=== PATIENT | female | born 1945 | race Caucasian/White ===

== ENCOUNTER 2019-02-24 10:15 | Emergency (ER) | payer MEDICARE, OTHER ==
[~2019-02-24] VITALS: Ht 170.2 cm; Wt 108.9 kg
[~2019-02-24 10:15] MED LIST: CALCIUM + VITA1 EAC1 PO; CELEBREX200 MG PO; DICLOFENAC SODI75 MG PO; DICYCLOMINE HCL10 MG PO; ESTRADIOL2 MG PO; FISH OIL-OMEGA1 EACH PO; LEVOTHROID50 MCG PO; METFORMIN HCL500 MG PO; METOPROLOL TART50 MG PO; MULTIVITAMINS1 EAC7 PO; NEXIUM20 MG PO; NORCO 5-325 TA1 EACH PO; NP THYROID60 MG PO; PAROXETINE HCL40 MG PO; PRILOSEC10 MG PO
[2019-02-24] MEDS ORDERED: PROTONIX40 M1 PO (10:30)
[2019-02-24] MEDS ORDERED: VITAMIN D35000 UNI1 PO (10:31)
[2019-02-24] MEDS ORDERED: ASPIR-LOW81 MG PO (10:31)
[2019-02-24] MEDS ORDERED: LIPITOR10 MG PO (10:36)
[2019-02-24] MEDS ORDERED: QMIIZ ODT7.5 MG PO (10:37)
[2019-02-24] MEDS ORDERED: DOXEPIN HCL10 MG PO (10:38)
[2019-02-24] MEDS ORDERED: LISINOPRIL2.5 MG PO (10:39)
[2019-02-24] MEDS ORDERED: ONDANSETRON ODT8 MG PO (13:10)
== END 2019-02-24 13:40 | disposition home or self-care (01) ==
LOC: ED 10:15
DX: K29.00 Acute gastritis without bleeding (principal); I10 Essential (primary) hypertension; Z88.2 Allergy status to sulfonamides; Z79.899 Other long term (current) drug therapy; Z79.84 Long term (current) use of oral hypoglycemic drugs; Z79.82 Long term (current) use of aspirin
CPT/HCPCS: 80053; 81001; 83690; 85025; 96361; 96374; 99284-25; J2405; J7030

== ENCOUNTER 2021-10-16 07:42 | Day surgery (SDC) | payer MEDICARE, OTHER ==
[~2021-10-16] VITALS: Ht 170.2 cm; Wt 101.8 kg
[~2021-10-16 07:42] MED LIST changes: +ASPIR-LOW81 MG PO; +DOXEPIN HCL10 MG PO; +LIPITOR10 MG PO; +LISINOPRIL2.5 MG PO; +ONDANSETRON ODT8 MG PO; +PROTONIX40 M1 PO; +QMIIZ ODT7.5 MG PO; +VITAMIN D35000 UNI1 PO
[2021-10-16] MEDS ORDERED: ELIQUIS5 MG PO (08:11)
--- NOTE | 2021-10-16 09:48 | NUR ---
10/16/21 0948 Delfina Garcia 9420-PATIENT ARRIVED TO PACU ON 2L NC RR EVEN. PATIENT LAYING LEFT LATERAL ABDOMEN SOFT IVF INFUSING. PATIENT FLICKERS EYELASHES TO VERBAL STIMULI NOT FOLLOWING ANY COMMANDS. SR.
--- NOTE | 2021-10-16 10:47 | NUR ---
ICED WATER GIVEN. CALL LIGHT WITHIN REACH.
--- NOTE | 2021-10-16 12:51 | NUR ---
AFTER A LONG WAIT FOR PATIENT'S FRIEND AND SEVERAL PHONE CALLS, PATIENT'S FRIEND ARRIVES AT 1245. PATIENT IS DISCHARGED FROM DAY SURGERY AT 1205. SHE USES THE BATHROOM TWICE PRIOR TO HER FRIEND'S ARRIVAL. PATIENT TRANSFERS HERSELF FROM THE WHEELCHAIR TO THE CAR AND SHE TOLERATES THAT WELL.
--- NOTE | 2021-10-17 06:04 | OR ---
[facility] [address] [place] [address] Signed DATE OF OPERATION: 10/16/2021 SURGEON: Sheila Wright MD PREOPERATIVE DIAGNOSES: 1. Unremarkable colonoscopy in 2011. 2. Internal hemorrhoids. 3. Irritable bowel syndrome with diarrhea. POSTOPERATIVE DIAGNOSES: 1. 5 mm polyp at proximal. DICTATION ENDS HERE. Sheila Wright MD ALB/MODL /[id number] Copies: ~ Electronically Signed By: SHEILA WRIGHT MD 10/17/21 0604 PATIENT NAME: CRISTIN BROWN OPERATIVE REPORT DATE OF : 45 REPORT #: [id number] PHYSICIAN: SHEILA WRIGHT MD PCP: HARVEY CHRISTINE PA-C REPORT IS CONFIDENTIAL AND NOT TO BE RELEASED WITHOUT AUTHORIZATION
--- NOTE | 2021-10-17 06:04 | OR ---
[facility] [address] [place], [place] [address] Signed DATE OF OPERATION: 10/16/2021 SURGEON: Sheila Wright MD PREOPERATIVE DIAGNOSES: 1. Unremarkable colon[place] [address] Kaur. 2. Hemorrhoids. 3. Irritable bowel syndrome with diarrhea. POSTOPERATIVE DIAGNOSES: 1. 5 mm polyp at proximal transverse colon. 2. 4 mm polyps x2 at hepatic flexure. 3. Minimal internal hemorrhoids and associated skin tags. PROCEDURE: Colonoscopy with hot biopsy. ESTIMATED BLOOD LOSS: None. INDICATIONS: Mackenzie is a 75-year-old female asked to see me for followup colonoscopy. Her one and only colonoscopy were unremarkable with Dr. Kaur back in 2011. She is known to have some internal hemorrhoid tissue. She did well with Versed and fentanyl. She also describes irritable bowel syndrome for many years. I actually helped her with an upper endoscopy back in 2006, that went well. She has no family history of colon cancer or polyps. She has no lower GI complaints currently. In the office, I gave her a pamphlet on colonoscopy. She understands the nature of the test. There is risk including, but not limited to gas bloating, crampy abdominal pain, bleeding, perforation requiring surgery, and missed diagnosis. We had reviewed the need for IV conscious sedation. She expressed understanding and wished to proceed. PROCEDURE IN DETAIL: Mackenzie was taken into our endoscopy suite and placed in the left lateral decubitus position. She was given a total of 10 mg of Versed and 200 mcg of fentanyl. The digital rectal exam was unremarkable. She has good sphincter tone. No external hemorrhoids. The scope had been inserted and advanced under direct visualization of camera. It was buckling back in the sigmoid colon. We could not get all the way down to the cecum. We had to have our anesthesia provider come and provide monitored anesthesia care with propofol. After that, Mackenzie relaxed quite nicely and then the Electronically Signed By: SHEILA WRIGHT MD 10/17/21 0604 PATIENT NAME: MACKENZIE BROWN OPERATIVE REPORT DATE OF : 45 REPORT #: [id number] PHYSICIAN: HSEILA WRIGHT MD PCP: HARVEY CHRISTINE PA-C REPORT IS CONFIDENTIAL AND NOT TO BE RELEASED WITHOUT AUTHORIZATION [facility] [address] [place] [id number] Signed scope traveled right into the cecum itself. We could easily see the appendiceal orifice and the ileocecal valve. The scope was then slowly withdrawn. Pictures were taken throughout for photodocumentation. Her prep was quite good. The above-mentioned polyps were easily removed with the help of hot biopsy polyps. There was no diverticulosis. The rectum was unremarkable. Upon retroflexion of scope, she has minimal internal hemorrhoids with at least three small internal anal skin tags. After this, the gas was suctioned out colonoscope removed. Mackenzie tolerated the procedure quite well with the addition of the propofol. RECOMMENDATIONS: I will see Mackenzie back in my office in 7 to 14 days to review her results. She will need monitored anesthesia care with propofol in the future. Sheila Wright MD ALB/MODL /[id number] cc: ARETHA Boone MD Copies: HARVEY CHRISTINE PA-C, ANDREW L MD ~ Electronically Signed By: SHEILA WRIGHT MD 10/17/21 0604 PATIENT NAME: MACKENZIE BROWN OPERATIVE REPORT DATE OF : 45 REPORT #: [id number] PHYSICIAN: SHEILA WRIGHT MD PCP: HARVEY CHRISTINE PA-C REPORT IS CONFIDENTIAL AND NOT TO BE RELEASED WITHOUT AUTHORIZATION
--- NOTE | 2021-10-17 11:03 | PATH ---
[facility] [address] [place], [place] [address] Signed SPECIMEN(S): A PROXIMAL TRANSVERSE COLON POLYP SPECIMEN(S): B HEPATIC FLEXURE POLYP SPECIMEN SOURCE: A. PROXIMAL TRANSVERSE COLON POLYP B. HEPATIC FLEXURE POLYP CLINICAL HISTORY: History hemorrhoids. IBS-diarrhea, screening colonoscopy. Post-op: Polyps, internal hemorrhoids. FINAL PATHOLOGIC DIAGNOSIS: A. Colon, proximal transverse, polyp, polypectomy: - Fragments of cauterized tubular adenoma. - Negative for high-grade dysplasia or malignancy. B. Colon, hepatic flexure, polyp, polypectomy: - Fragments of tubular adenoma. - Negative for high-grade dysplasia or malignancy. NAL:cml:C2NR MICROSCOPIC EXAMINATION: Histologic sections of all submitted blocks are examined by light microscopy. These findings, together with the gross examination, support the pathologic diagnosis. GROSS DESCRIPTION: Two specimens are received in two containers, labeled "JL." A. The specimen, labeled "JL, 1," and designated on the requisition "proximal transverse polyp," is received in formalin and consists of two malhotra soft tissue fragments that measure 0.3 cm in greatest dimension. The specimen is entirely submitted in cassette (A1). B. The specimen, labeled "JL, 2," and designated on the requisition "hepatic flexure," is received in formalin and consists of two malhotra soft tissue fragments that measure 0.3 cm in greatest dimension. The specimen is entirely submitted in cassette (B1). AT (under the direct supervision of a pathologist) The Gross Description was prepared using a voice recognition system. The report was reviewed for accuracy; however, sound-alike word errors, addition and/or deletions may occur. If there is any question about this report, please contact Client Services. PATIENT NAME: CRISTIN BROWN PATHOLOGY DATE OF : 45 REPORT #: [id number] PHYSICIAN: MELISSA HONG PCP: HARVEY CHRISTINE PA-C REPORT IS CONFIDENTIAL AND NOT TO BE RELEASED WITHOUT AUTHORIZATION [facility] [address] [place] [address] Signed PERFORMING LABORATORY: The technical component was performed by [facility], [address] [place] [address] (CLIA# [id number]). Professional interpretation was performed by [facility], [address] [address] (CLIA# [id number]). Diagnostician: Patti Burris MD Pathologist Electronically Signed 10/17/2021 Copies: ~ PATIENT NAME: CRISTIN BROWN PATHOLOGY DATE OF : 45 REPORT #: [id number] PHYSICIAN: MELISSA HONG PCP: HARVEY CHRISTINE PA-C REPORT IS CONFIDENTIAL AND NOT TO BE RELEASED WITHOUT AUTHORIZATION
== END 2021-10-16 12:05 | disposition home or self-care (01) ==
LOC: OPS 07:42 → DS 07:42 → OPS 09:45
PROVIDERS: ATTEND Colon & Rectal Surgery
PROC: 0DBL8ZX Excision of Transverse Colon, Via Natural or Artificial Opening Endoscopic, Diagnostic (ICD-10-PCS; principal; 2021-10-16 09:45)
DX: D12.3 Benign neoplasm of transverse colon (principal); K58.0 Irritable bowel syndrome with diarrhea; E11.9 Type 2 diabetes mellitus without complications; K21.9 Gastro-esophageal reflux disease without esophagitis; I10 Essential (primary) hypertension; E03.9 Hypothyroidism, unspecified; K64.0 First degree hemorrhoids; K64.4 Residual hemorrhoidal skin tags; E66.9 Obesity, unspecified; Z79.84 Long term (current) use of oral hypoglycemic drugs; Z88.2 Allergy status to sulfonamides; Z68.35 Body mass index [BMI] 35.0-35.9, adult
CPT/HCPCS: J2250; J2704; J3010; J7121